=== PATIENT | female | born 1995 | race Caucasian/White ===

== ENCOUNTER 2024-09-30 10:54 | Emergency (ER) | payer OTHER, SELFPAY ==
--- OUTSIDE RECORDS SUMMARY | 2024-09-30 10:56 | XMS_ITS | Clinical Summary ---
Author Organization [facility] Address [address] [place] [address] Care Team Providers Care Globe Tester Name Role Phone No Ref-Primary, Physician Primary Care Provider Dakota Sena OD Unavailable [phone] Allergies No known active allergies Medications lisdexamfetamin e (VYVANSE) 50 MG capsule Take 50 mg by mouth every morning Active Resolved Problems Problem Noted Date Diagnosed Date Resolved Date Pain of left thigh 12/23/2020 2 After care 12/23/2020 08/24/2021 Pain of right lower leg 07/15/2020 06/0 10/2020 Chronic pain of right knee 07/15/2020 0 12/10/2020 Hip pain, left 07/15/2020 12/10/2020 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 07/15/2020 12/10/2020 Family History Medical History Relation Comments Glaucoma No family hx of Macular Degeneration No family hx of Social History Tobacco Use Types Packs/Day Years Used Date Smoking Tobacco: Never Smokeless Tobacco: Never Alcohol Use Standard Drinks/Week Comments Yes 0 (1 standard drink = 0.6 oz pur e alcohol) PHQ-2 Answer Date Recorded PHQ-2 Score 0 02/12/2019 Adolescent Education Answer Date Record ed Getting School Help Needed Not on file 03/30 Comments Unknown Sex and Gender Information Value Date Recorded Sex Assigned at Not on file Legal Sex Female 4:46 PM CDT Gender Identity Not on file Sexual Orientation Not on file Plan of Treatment Not on file Insurance [place] Care Teams Globe Tester Relationship Specialty Start Date End Date No Ref-Primary, Physician PCP - General 02/11/19 Dakota Sena, MANUEL [address] [place] [address] Optometry 02/11/19
--- OUTSIDE RECORDS SUMMARY | 2024-09-30 10:56 | XMS_ITS | Clinical Summary ---
Author Organization [facility] Address [address] [place] [id number] Care Team Providers Care Nursing Aide Name Role Phone Nonstaff, Doctor Primary Care Provider Unavailab le Allergies No known active allergies Medications bacitracin ointmentIndicat ions:Laceration of right thumb without foreign body without damage to nail, initial encounter Apply topically to affected area(s) two times daily. 28 g Active Immunizations Immunization Administration Dates Next Due Tdap 09/25/2022() Social History Tobacco Use Types Packs/Day Years Used Date Smoking Tobacco: Never Assessed Comments Unknown Sex and Gender Information Value Date Recorded Sex Assigned at Not on file Legal Sex Female 8:21 PM CDT Gender Identity Not on file Sexual Orientation Not on file Last Filed Vital Signs Vital Sign Reading Time Taken Comments Blood Pressure 119/84 09/25/2022 9:23 PM CDT Pulse 81 09/25/2022 9:24 PM CDT Temperature 36.8 C (98.3 F) 09/25/2022 9:24 PM CDT Respiratory Rate 16 09/25/2022 9:24 PM CDT Oxygen Saturation 99% 09/25/2022 9:24 PM CDT Inhaled Oxygen Concentration - - Weight 88.8 kg (195 lb 12.8 oz) 09/25/2022 8:34 PM CDT Height 180.3 cm (5' 11) 09/25/2022 8:34 PM CDT Body Mass Index 27.31 09/25/2022 8:34 PM CDT Plan of Treatment Not on file Insurance [facility] Care Teams Nursing Aide Relationship Specialty Start Date End Date Nonstaff, Doctor NON STAFF DOCTOR PCP - General 09/25/22
--- OUTSIDE RECORDS SUMMARY | 2024-09-30 10:56 | XMS_ITS | Clinical Summary ---
Author Organization [facility] Address [address] [place] [id number] Care Team Providers Care Fire And Explosion Investigator Name Role Phone Unavailable Primary Care Provider Unavailabl e Source Comments You are receiving this document as you are listed as the primary care provider,follow-up provider, or the patient has been referred to you for consultation.This is in compliance with the Medicare andMedicaid EHR Incentive Program,which states Providers who transition their patient to another setting of careor provider of care or refers their patient to another provider of care shouldprovide summary care record for each transition of care or referral. 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 Gender Identity Not on file Sexual Orientation Not on file Plan of Treatment Health Maintenance Due Date Last Done Comments Cervical Cancer Screening Due 1997 Hep C Screening (Preventive Services) 1997 HIV Screening (Preventive Services) 2013 Adult Preventive Visit 2015 HepB (1) 2016 DTaP/Tdap/Td (8 - Tdap) 05/16/2021 05/16/20, 10/15/2009, 03/06/2003, Additional history exists COVID-19 Vaccine ( season) 2024 Influenza (#1) 2024 04/25/2016, 09/07, 04/25/2014, Additional history exists Zoster/Shingles (1 of 2) 2047 Hib Completed 10/20/1998, 10/07, 1997, Additional history exists IPV (Polio) Completed 03/06/2003, 03/10, 1997, Additional history exists HPV Vaccine Completed 04/25/2016, 04/08, 02/16/2012 HepA Completed 09/21/2017, 03/2016, 02/16/2012, Additional history exists MCV4 Aged Out 03/26/2018, 02/06, 02/16/2012 No longer eligible based on patient's age to complete this topic Meningococcal B Aged Out No longer el igible based on patient's age to complete this topic Pneumococcal Aged Out No longer eligi ble based on patient's age to complete this topic Insurance [place] [address]
[2024-09-30 11:08] VITALS: BP 121/81; PULSE 78; RESP 26; TEMP 36.6; O2SAT 97; BMI 26.5
--- OUTSIDE RECORDS SUMMARY | 2024-09-30 11:54 | XMS_ITS | Clinical Summary ---
Author Organization [facility] Address [address] [place] [address] Care Team Providers Care Bingo Floater Name Role Phone Nonstaff, Doctor Primary Care [...] Plan of Treatment Not on file Insurance [facility] Care Teams Bingo Floater Relationship Specialty Start Date End Date Nonstaff, Doctor NON STAFF DOCTOR PCP - General 09/25/22
--- OUTSIDE RECORDS SUMMARY | 2024-09-30 11:54 | XMS_ITS | Clinical Summary ---
Author Organization [facility] Address [address] [place] [address] Care Team Providers Care Cemetery Laborer Name Role Phone No Ref-Primary, Physician Primary Care Provider Dakota Sena OD Unavailable [phone] Allergies No known active allergies Medications lisdexamfetamin [...] Treatment Not on [place] [address] Care Teams Cemetery Laborer Relationship Specialty Start Date End Date No Ref-Primary, Physician PCP - General 02/11/19 Dakota Sena, MANUEL [address] [place] [address] Optometry 02/11/19
--- OUTSIDE RECORDS SUMMARY | 2024-09-30 11:54 | XMS_ITS | Clinical Summary ---
Author Organization [facility] Address [address] [place] [address] Care Team Providers Care Salesperson Burial Plots Name Role Phone Unavailable Primary Care Provider [...] for each transition of care or referral. 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
--- NOTE | 2024-09-30 11:58 | ED.WOUNDLAC ---
HPI - Wound/Laceration General Chief Complaint: Laceration/Wound Stated Complaint: right hand laceration Time Seen by Provider: 09/30/24 10:55 History of Present Illness HPI narrative: This 29-year-old female comes in with injury to her right index and middle fingers. She was working with a food sampler and had not yet used it when she accidentally cut the palmar aspect of the distal portion of each of these fingers. She states that her tetanus was last administered 9 years ago and will follow up with her primary doc for the next vaccination. Related Data Allergies Allergy/AdvReac Type Severity Reaction Status Date / Time No Known Drug Allergies Allergy Verified 09/30/24 11:08 Review of Systems Status of ROS: Reports: 10 or more systems reviewed and unremarkable except as noted in History and below Narrative: Constitutional: No fevers, no weight gain or loss. Eyes: No discharge. No vision changes. HENT: No congestion, no sore throat, no ear pain. Cardiovascular: No chest pain, no palpitations. Respiratory: No shortness of breath, no wheezes, no cough. Gastrointestinal: No abdominal pain, no vomiting, no diarrhea. Genitourinary: No dysuria, no hematuria. Musculoskeletal: Normal range of motion. Skin: No rashes, no pruritis. Neurological: No dizziness, weakness, sensory change, speech change. Endo/Heme/Allergies: No bruising or bleeding. No polydipsia. Pysch: no suicidality, no anxiety, no insomnia. All other systems reviewed and are negative. PFSH PFSH Social History Smoking Status: Never smoker Do you use any of these nicotine containing products: None How often do you have a drink containing alcohol: never AUDIT-C Alcohol total score: 0 Non-prescribed substance use: denies use Exam Narrative: Exam Narrative: Constitutional: Well-developed, well-nourished, no acute distress. HEENT: Normocephalic, atraumatic. Neck: Normal range of motion. Nontender. Supple. Heart: Intact distal pulses. Lungs: No chest discomfort. No wheezes, rhonchi, or rales. Abdomen: Nontender. Back: Normal range of motion. Extremities: Normal range of motion. 3 cm linear laceration across the pad of the distal portion of the right index finger. 2 cm linear laceration on the next middle finger in the same area. Skin: Intact. No rash. Warm. No erythema or pallor. Neurologic: No altered sensation. No weakness. Alert and oriented. Psychiatric: No suicidality. No anxiety or depression. No insomnia. Nursing notes and vitals signs are reviewed. Const: Vital Signs, click to edit/add: Vital Signs - 24 hr 09/30/24 11:08 Temperature 97.9 F Pulse Rate [Pulse Oximeter] 78 Respiratory Rate 26 H Blood Pressure [Ri ght Upper Arm] 121/81 Pulse Oximetry 97 Oxygen Delivery Me thod Room Air Course Vital Signs Vital signs: Initial Vital Signs Temperature 97.9 F 09/30/24 11:08 Temperature Source Temporal Artery Scan 09/30/24 11:08 Pulse Rate 78 09/30/24 11:08 Respiratory Rate 26 H 09/30/24 11:08 Blood Pressure 121/81 09/30/24 11:08 Blood Pressure Mean 94 09/30/24 11:08 Pulse Oximetry 97 09/30/24 11:08 Oxygen Delivery Method Room Air 09/30/24 11:08 Vital Signs Temperature 97.9 F 09/30/24 11:08 Pulse Rate 78 09/30/24 11:08 Respiratory Rate 26 H 09/30/24 11:08 Blood Pressure 121/81 09/30/24 11:08 Pulse Oximetry 97 09/30/24 11:08 Oxygen Delivery Method Room Air 09/30/24 11:08 Temperature 97.9 F 09/30/24 11:08 Pulse Rate 78 09/30/24 11:08 Respiratory Rate 26 H 09/30/24 11:08 Blood Pressure 121/81 09/30/24 11:08 Pulse Oximetry 97 09/30/24 11:08 Oxygen Delivery Method Room Air 09/30/24 11:08 MDM - Wound/Laceration MDM Narrative Medical decision making narrative: This patient has lacerations that would benefit from suture repair. After anesthesia with 1% lidocaine the wound was explored and cleansed. Total of 7 sutures were placed in the index finger using 4.0 Ethilon suture. 4 sutures were placed in the middle finger with the same suture. Instructions regarding wound care were given and the need to return for suture removal in 7-10 days. Discharge Plan Discharge Clinical Impression: Laceration Patient Disposition: Home, Self-Care Condition: Improved Additional Instructions: Keep wound clean and dry. Use [id number] medicines as needed and directed. Follow-up for suture removal in 7-10 days. Follow Up/Referrals: Provider,Not a Local [Primary Care Provider] - Stand Alone Forms: [employer] Info Instructions
== END 2024-09-30 12:16 | disposition home or self-care (01) ==
PROVIDERS: Emergency Provider Emergency Medicine Emergency Medical Services
DX: S61.210A Laceration without foreign body of right index finger without damage to nail, initial encounter (principal); S61.212A Laceration without foreign body of right middle finger without damage to nail, initial encounter; W27.4XXA Contact with kitchen utensil, initial encounter; Y93.G1 Activity, food preparation and clean up
CPT/HCPCS: 12001; 99283; 99284